=== PATIENT | male | born 1940 | race Caucasian/White ===

== ENCOUNTER 2016-11-08 08:47 | Outpatient (CLI) | payer OTHER ==
--- NOTE | 2016-11-08 15:13 | DIAGNOSTIC IMAGING REPORT ---
PROCEDURE: CT LOW-DOSE LUNG CA SCREENING CLINICAL INDICATION: Screening. Current smoker, known pulmonary nodules. TECHNIQUE: Low-dose helical CT images of the lungs without contrast were obtained and reconstructed at 2.5 mm slice thickness. MIP reformations in coronal and sagittal planes were created. Radiation dose 1.38 mGy. COMPARISON: Oldest available comparison: 07/02/2012, most recent comparison 10/28/2015. FINDINGS: NODULES: 1. Location: Anterior left upper lobe image location: 43-48 size: 17 mm composition: Mainly solid (14 mm solid component). Solid component has developed and the nodule has significantly increased since the previous study. OTHER LUNG FINDINGS: Chronic right major fissure thickening. Development of irregular patchy and strandy parenchymal opacity at the right posterior lower lobe. AIRWAY: Mild right middle and lower lobe peribronchial thickening. No ndobronchial nodule. PLEURA: Bilateral multi focal calcified pleural plaques. Bilateral diaphragmatic plaques. No pleural effusion. AORTA AND GREAT VESSELS: Normal caliber, heavy atherosclerotic calcification. PULMONARY ARTERIES: Normal. . HEART AND PERICARDIUM: Normal size with left-sided multi lead pacemaker, heavy coronary artery calcification, and the left pericardial calcification. LYMPH NODES: No enlarged nodes visible. Stable mediastinal lymph nodes. THORACIC SPINE: No suspicious lesion. CHEST WALL: Normal. VISUALIZED UPPER ABDOMEN: Small hiatal hernia. Heavy arterial calcification. IMPRESSION: 1. Increase in solid component and size of the anterior left upper lobe lung nodule. This nodule is suspicious for neoplasm and given the large size of solid component, PET CT is recommended. 2. Stable mediastinal lymph nodes. 3. Right posterior lower lobe parenchymal opacities suspicious for infectious process or aspiration. Correlate clinically. 4. Heavy atherosclerosis, systemic and coronary. 5. Asbestosis. 6. Lung RADS category 4B, suspicious. PET CT and/or tissue acquisition is recommended. 7. Discussed with Dr. Bernal. All CT scans at this facility use dose modulation, iterative reconstruction, and/or weight-based dosing when appropriate to reduce radiation dose to as low as reasonably achievable.
== END 2016-11-08 23:00 ==
LOC: CT SRH 08:47
DX: C06.9 Malignant neoplasm of mouth, unspecified (principal); R91.8 Other nonspecific abnormal finding of lung field; J61 Pneumoconiosis due to asbestos and other mineral fibers

== ENCOUNTER 2016-12-20 09:13 | Outpatient (CLI) | payer OTHER | END 2016-12-20 23:00 | LOC: RT SRH 09:13 | DX: J44.9 Chronic obstructive pulmonary disease, unspecified (principal); C34.90 Malignant neoplasm of unspecified part of unspecified bronchus or lung ==

== ENCOUNTER 2016-12-21 11:10 | Outpatient (CLI) | payer OTHER ==
--- NOTE | 2016-12-21 14:10 | DIAGNOSTIC IMAGING REPORT ---
PROCEDURE: XR CHEST 1 VIEW INDICATION: 1.25 HR POST LEFT LUNG BIOPSY TECHNIQUE: AP view (1400 hours). COMPARISON: Compared to chest x-ray earlier today (12/21/2016, 1305 hours). FINDINGS: Left lung remains unchanged. There is no evidence of left pneumothorax. The rest of the chest is unchanged. IMPRESSION: 1. Status post left lung biopsy. No evidence of pneumothorax. 2. The patient was discharged home to the care of his nephew in satisfactory condition with instructions to call me for any untoward symptoms (shortness of breath, chest pain).
--- NOTE | 2016-12-21 14:14 | DIAGNOSTIC IMAGING REPORT ---
PROCEDURE: CT LUNG/MEDIASTINUM BIOPSY CLINICAL INDICATION: Left lung mass. TECHNIQUE: Informed consent was obtained and the patient was advised of the usual risks and complications including infection, bleeding, allergy and pneumothorax. COMPARISON: None. FINDINGS: Supine position. Following sterile preparation and 1% lidocaine local anesthetic, CT guidance was utilized to place a 19-gauge coaxial needle in the left upper ventral chest and directed into a 1.8 cm anterior left lung nodule. Three core biopsy samples were obtained with a 20-gauge biopsy instrument, placed in formalin, and transferred to the laboratory. There is a small amount of surrounding parenchymal hemorrhage on follow-up CT images, but no evidence of pneumothorax. The patient tolerated the procedure reasonably well. The patient was transferred back to the main department for observation. IMPRESSION: 1. Successful CT-guided biopsy of left lung mass. 2. Followup chest x-rays are pending. All CT scans at this facility use dose modulation, iterative reconstruction, and/or weight-based dosing when appropriate to reduce radiation dose to as low as reasonably achievable.
--- NOTE | 2016-12-21 14:26 | DIAGNOSTIC IMAGING REPORT ---
PROCEDURE: XR CHEST 1 VIEW INDICATION: 15 MIN POST BX LEFT LUNG TECHNIQUE: AP view (1305 hours). COMPARISON: Compared to chest x-ray on 09/22/2011. FINDINGS: Lungs are clear. No evidence of left pneumothorax. Bilateral pleural and diaphragmatic calcified plaques consistent with asbestosis. Left subclavian dual lead pacemaker. Heart and mediastinum are normal. Thorax is normal. IMPRESSION: 1. Status post left lung biopsy. No evidence of pneumothorax at 15 minutes. 2. Asbestosis. 3. Follow-up chest x-ray is pending.
== END 2016-12-21 23:00 ==
LOC: CT SRH 11:10
PROC: 0B9L3ZX Drainage of Left Lung, Percutaneous Approach, Diagnostic (ICD-10-PCS; principal; 2016-12-21)
DX: J61 Pneumoconiosis due to asbestos and other mineral fibers (principal); C06.9 Malignant neoplasm of mouth, unspecified; C34.01 Malignant neoplasm of right main bronchus
CPT/HCPCS: 82445; 82584